=== PATIENT | male | born 1950 | race Caucasian/White ===

== ENCOUNTER 2016-04-21 14:12 | Outpatient (CLI) | payer MEDICARE, OTHER ==
[2016-01-09 21:23] VITALS: BP 125/74
[2016-04-21 14:49] LABS: eGFR (African) 35; eGFR (Non-African) 29
== END 2016-04-21 14:13 ==
LOC: LAB 14:12
PROVIDERS: ATTEND Family Medicine
DX: N18.4 Chronic kidney disease, stage 4 (severe) (principal)
CPT/HCPCS: 36415; 80048

== ENCOUNTER 2016-08-12 14:24 | Outpatient (CLI) | payer MEDICARE, OTHER ==
[2016-01-09 21:23] VITALS: BP 125/74
== END 2016-08-12 14:25 ==
LOC: NEPHRO 14:24
PROVIDERS: ATTEND Internal Medicine Nephrology
DX: N05.9 Unspecified nephritic syndrome with unspecified morphologic changes (principal)
CPT/HCPCS: G0463

== ENCOUNTER 2017-02-17 13:59 | Outpatient (CLI) | payer MEDICARE, OTHER ==
[2016-01-09 21:23] VITALS: BP 125/74
== END 2017-02-17 14:00 ==
LOC: NEPHRO 13:59
PROVIDERS: ATTEND Internal Medicine Nephrology
DX: N18.3 Chronic kidney disease, stage 3 (moderate) (principal); N25.89 Other disorders resulting from impaired renal tubular function
CPT/HCPCS: G0463

== ENCOUNTER 2018-04-09 12:16 | Observation (INO) | payer MEDICARE, OTHER ==
[2018-04-09] MEDS ORDERED: NORMAL SALINE 1,000 ML IV.SOLN IV ONE (12:25)
[2018-04-09 13:11] LABS: MEAN CORPUSCULAR HEMOGLOBIN 29.6 pg (28.0-34.0)
[2018-04-09 13:12] LABS: BASOPHILS % 0.5 (0.0-1.5); EOSINOPHILS % 1.7 % (0.0-6.8); MONOCYTES % 8.4 % (0.0-11.0); NEUTROPHILS # 11.3 # k/uL (1.4-7.7)
[2018-04-09 13:31] LABS: eGFR (Non-African) 34
[2018-04-09] MEDS: ONDANSETRON HCL/PF 4 MG/ 2ML VIAL IVP PRN ×3 (13:40→23:26)
--- NOTE | 2018-04-09 14:05 | History and Physical Report ---
History of Present Illnes - History of Present Illness Reason for Visit: Dehydration- Nausea & Vomiting History of Present Illness: Patient is a 67-year-old white male that presents to the clinic today with nausea and vomiting. Patient states that symptoms started 5 days ago and have not improved. He has tried taking sips of water and he cant hold it down. He feels that he is getting very weak and he lives alone. He is not sure if he has food poisoning from some rene that he ate or if it is just a "bug" he picked up. He feels extremely weak and short of breath with exertion. He denies any chest pain or syncopal episodes- states he occasionally feels dizzy when he moves to quickly or stands up. He has not had any food for several days. Will send patient next door to the hospital and will admit observation for IV hydration and IV zofran for nausea and vomiting. 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 denies: Rheumatoid arthritis Infectious Disease: denies: HIV ENT: denies: Sinusitis Renal/: Chronic renal failure Endocrine: denies: Diabetes, Hypothyroidism Dermatology: denies: Cellulitis - Past Surgical History Past Surgical History: Hernia Repair, Tonsillectomy - Past Social History Smoke: No Alcohol: None Drugs: None Lives: Alone Domestic Violence: Negative - Health Maintenance Health Maintenance: Cholesterol, Influenza Vaccine, Pneumococcal Vaccine Influenza Vaccine: Current for this Influenza Season Pneumonia Vaccine: Yes Resuscitation Status: Resusciation Status Resuscitation Status Full Code - Unable to Obtain History Unable to Obtain: No Review of Systems - Review of Systems Constitutional: negative: Fever, Chills Eyes: negative: pain ENT: negative: Ear Pain, Nose Pain, Throat Pain Respiratory: SOB with Excertion Cardiovascular: Light Headedness (with position change). negative: Chest Pain, Edema Gastrointestinal: Nausea, Vomiting, Abdominal Pain Genitourinary: negative: Dysuria Musculoskeletal: negative: Back Pain Skin: negative: Rash Neurological: Weakness (from nausea and vomiting) - Medications/Allergies Allergies/Adverse Reactions: Allergies Allergy/AdvReac Type Severity Reaction Status Date / Time No Known Drug Allergies Allergy Verified 01/09/16 20:30 Current Inpatient Medications: Current Inpatient Medications Sodium Chloride (Normal Saline) 1,000 mls @ 100 mls/hr IV Q10H CADY Ondansetron HCl (Zofran 4 Mg/2 Ml) 4 mg IVP Q6H PRN PRN Reason: Nausea / Vomiting Last Admin: 04/09/18 13:40 Dose: 4 mg Exam - Exam General: Alert, Oriented to Person, Oriented to Place, Oriented to Time, Cooperative, Mild distress HEENT: Atraumatic, PERRLA, Other (mucous membranes are dry) Neck: Normal Range of Motion. No: Stridor Lungs: Clear to auscultation, Normal air movement, Speaks full Sentences. No: Wheezes, Rales Cardiovascular: Regular rate, Normal S1, Normal S2 Abdomen: Normal bowel sounds, Soft. No: Distended, Rigid Integumentary: Warm, Dry, Pale, Decreased Turgor Extremities: No edema, Normal pulses, No tenderness/swelling Neurological: Normal gait, Normal speech, Strength Equal Bilat, Sensation intact Psych/Mental Status: Mental status NL, Mood NL, Appropriate Affect - Laboratory Results Laboratory Results: Laboratory Results 04/09/18 04/09/18 04/09/18 12:22 12:22 12:40 WBC 14.20 H RBC 4.81 Hgb 14.3 Hct 43.7 MCV 91.0 MCH 29.6 MCHC 32.6 RDW 12.3 Plt Count 363 Neut % (Auto) 79.5 H Lymph % (Auto) 9.9 L [place] % (Auto) 8.4 Eos % (Auto) 1.7 Baso % (Auto) 0.5 Neut # (Auto) 11.3 H Lymph # (Auto) 1.4 [place] # (Auto) 1.2 H Eos # (Auto) 0.2 Baso # (Auto) 0.1 Sodium 139 Potassium 3.6 Chloride 92 L Carbon Dioxide 34 H BUN 33 H Creatinine 2.10 H Est GFR ( Amer) 41 L Est GFR (Non-Af Amer) 34 L Glucose 104 Calcium 9.7 Total Bilirubin 0.7 AST 39 ALT 46 Alkaline Phosphatase 74 Troponin I < 0.03 L Total Protein 7.8 Albumin 4.7 Assessment/Plan - Assessment/Plan (1) Dehydration Status: Acute Current Visit: Yes Assessment: Patient has had n/v- dry mucous membranes- tachycardia- weakness/fatigue Plan: Will admit patient observation- will give a 500cc bolus then 100 cc/hr and repeat labs in the morning (2) Nausea and vomiting Status: Acute Current Visit: Yes Qualifiers: Vomiting type: cyclical vomiting Vomiting Intractability: intractable Q ualified Code(s): G43.A1 - Cyclical vomiting, intractable Assessment: Patient has been unable to tolerate fluids or food- tachycardia- and weakness/fatigue Plan: Will hydrate patient with IVF and IV Zofran for nausea/vomiting VTE Assessment - RISK FACTOR SCORE VTE RISK FACTOR SCORES: AGE OVER 60 YEARS - RISK VTE LOW RISK: SCORE OF 1 OR LESS (RISK PROXIMAL DVT 0.4%) NO PROPHYLAXIS NEEDED
[2018-04-09 16:57] VITALS: BMI 45.7
[2018-04-09] MEDS: 0.9 % SODIUM CHLORIDE 1,000 ML IV SCH (17:29)
[2018-04-10] MEDS ORDERED: PROMETHAZINE HCL 25 MG in 0.9 % SODIUM CHLORIDE 50 ML IV PRN (02:34)
[2018-04-10] MEDS ORDERED: PANTOPRAZOLE SODIUM 40 MG TABLET.DR PO ONE (02:36)
[2018-04-10] MEDS ORDERED: PANTOPRAZOLE SODIUM 40 MG TABLET.DR ONE (02:39)
[2018-04-10] MEDS ORDERED: 0.9 % SODIUM CHLORIDE 50 ML IV ONE (02:39)
[2018-04-10] MEDS ORDERED: PROMETHAZINE HCL 25 MG/ML VIAL ONE (02:39)
[2018-04-10] MEDS: 0.9 % SODIUM CHLORIDE 1,000 ML IV SCH (02:46)
--- NOTE | 2018-04-10 03:08 | Diagnostic Imaging Report ---
HEATHER FERRARO [facility] [address] [facility] 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 Physician: HEATHER FERRARO Examination: Obstruction series History: VOMITING X4 DAYS, WEAKNESS (Hx) Findings: 4 views obtained of the chest and abdomen. No abnormal dilation of the large or small bowel. Air and stool throughout the large bowel. No suspicious calcification projecting over the renal fossa or the lower pelvic region. Pelvic phleboliths. Osseous structures are appropriate for age. The single view of the chest without focal infiltrative process. No blunting of the costophrenic margins. Impression: Moderate large bowel stool. No obstruction. No focal consolidation/effusion. No suspicious calcifications by plain film sensitivity. Electronically signed on Apr 09, 2018 3:13:04 PM FARMWORK[employer]GET[employer] by: Shadi OCHOA
[2018-04-10 07:55] VITALS: BP 134/71
[2018-04-10] MEDS ORDERED: POTASSIUM CHLORIDE 20 MEQ TABLET.ER PO ONE (09:41)
[2018-04-10] MEDS ORDERED: POTASSIUM CHLORIDE 20 MEQ TABLET.ER ONE (10:26)
--- NOTE | 2018-04-12 07:49 | Discharge Summary ---
Discharge Summary - Discharge Sumary History of Present Illness: Patient is a 67-year-old white male that presents to the clinic today with nausea and vomiting. Patient states that symptoms started 5 days ago and have not improved. He has tried taking sips of water and he cant hold it down. He feels that he is getting very weak and he lives alone. He is not sure if he has food poisoning from some rene that he ate or if it is just a "bug" he picked up. He feels extremely weak and short of breath with exertion. He denies any chest pain or syncopal episodes- states he occasionally feels dizzy when he moves to quickly or stands up. He has not had any food for several days. Will send patient next door to the hospital and will admit observation for IV hydration and IV zofran for nausea and vomiting Condition at Discharge: Stable Home Medications: Ambulatory Orders Medication Instructions Recorded Acetaminophen [Tylenol] 650 mg PO QID u2 06/16/14 Docusate Sodium [Colace] 100 mg PO BID av 06/16/14 Multivitamin [Daily Multiple 1 each PO DAILY u2 06/16/14 Vitamin] Ondansetron HCl Rapdis [Zofran Odt] 4 mg PO Q8 PRN #10 tab 04/10/18 Consultations this Visit: None Procedures this Visit: None Allergies/Adverse Reactions: Allergies Allergy/AdvReac Type Severity Reaction Status Date / Time No Known Drug Allergies Allergy Verified 01/09/16 20:30 Discharge Summary: Patient was admitted observation and his dehydration treated with IVF and IV Zofran and Phenergan. He was able to tolerate a regular diet before discharge a nd was feeling much better. He states that his energy level has greatly improved. Discussed abdominal xray and diagnosis of constipation with no obstruction noted. Explained this could be part of the reason for his nausea and vomiting. Patient will start Mag Citrate (1/2 bottle when he gets home- if no results in 1-2 hours he will drink the other half)- he is to start Miralax daily and increase fiber in his diet. He will follow up with PCP next week. Hospital Course: Patient received IVFs, IV Zofran & Phenergan. Patient received 40 meq of Potassium PO for Potassium of 3.1 and he will continue his home medication - Final Diagnosis (1) Dehydration Problems: Patient received IVF- he was able to eat and drink on discharge Right or Left: Right (2) Nausea and vomiting Problems: Nausea and vomiting controlled on discharge- Script for Zofran sent in to [facility] pharmacy Right or Left: Right (3) Constipation Problems: Patient will start Miralax daily and increase fiber in diet. He is to start Mag Citrate (per instructions) Right or Left: Right
== END 2018-04-10 10:30 | disposition home or self-care (01) ==
LOC: SOUTH 12:16
PROVIDERS: ADMIT Nurse Practitioner Family; ATTEND Nurse Practitioner Family
DX: E86.0 Dehydration (principal); R11.2 Nausea with vomiting, unspecified; K59.09 Other constipation
CPT/HCPCS: 36415; 74022; 80048; 80053; 84484; 85025; 96360; 96361; 96375; 96376; 99217; 99219; A9270; G0378; G0379; J2405; J2550; J7030; S1016

== ENCOUNTER 2018-04-12 12:45 | Emergency (ER) | payer MEDICARE, OTHER ==
--- NOTE | 2018-04-12 12:57 | ED Physician Documentation ---
General Adult - HISTORIAN Historian: patient - HPI Stated Complaint: bowel movement concerns Chief Complaint: General Adult Onset: other (today) Timing: better Severity: mild Further Comments: yes (He states that he was hospitalized this last week for deyhdration and constipation. He states the last two bowel movements have been black in color. When discussing more of the type of bowel movement he states the stools are normal in form and he thinks it was "dark like black in color but hard to see at the bottom of the toliet" He denies any abdominal pain no fever no other complaints. he reports he is eating well.) Last known Well Code/Unknown Code: Unknown - ROS CONST: no problems GI/: denies: abdominal pain, vomiting, nausea, diarrhea MS/SKIN/LYMPH: denies: rash - PAST HX Past History: none Allergies/Adverse Reactions: Allergies Allergy/AdvReac Type Severity Reaction Status Date / Time No Known Drug Allergies Allergy Verified 04/12/18 13:26 Home Medications: Ambulatory Orders Medication Instructions Recorded Acetaminophen [Tylenol] 650 mg PO QID u2 06/16/14 Docusate Sodium [Colace] 100 mg PO BID av 06/16/14 Multivitamin [Daily Multiple 1 each PO DAILY u2 06/16/14 Vitamin] - SOCIAL HX Smoking History: cigarettes Alcohol Use: none Drug Use: none - FAMILY HX Family History: No - VITAL SIGNS Vital Signs: Vital Signs Temp Pulse Resp BP Pulse Ox 134/71 04/10/18 08:51 - REVIEWED ASSESSMENTS Nursing Assessment Reviewed: Yes Vitals Reviewed: Yes Progress - Progress Progress: 1455: No pain and results discussed with plan - he states he just actually had a bowel movement in the restroom and it was green. He had no issues passing the stool. No other complaints DG ED Results Lab/Radiology - Radiology Radiology Impressions: Examination: Obstruction series History: 67/M ABD SERIES W/ PA CHEST CONSTIPATION AND STOOL CONCERNS (Hx) Findings: 4 views obtained of the abdomen. Few prominence of small bowel with air-fluid levels left upper abdomen. No suspicious calcification projecting over the renal fossa or the lower pelvic region. Pelvic phleboliths. Osseous degener ative changes. Chronic parenchymal changes. No focal consolidative process or blunting of the costophrenic margins. Impression: Few left upper quadrant prominent loops of presumed small bowel with air-fluid levels. Correlate with patient symptoms. Consider obtaining CT Abdomen/pelvis to further evaluate if clinically warranted. Chronic interstitial changes. No acute parenchymal process. No suspicious calcifications by plain film sensitivity. Electronically signed on Apr 12, 2018 2:50:47 PM MECHANICAL SPECIALIST by: Shadi Rocha General Adult Physical Exam - PHYSICAL EXAM GENERAL APPEARANCE: no distress EENT: eye inspection normal, pharynx normal, no signs of dehydration NECK: normal inspection RESPIRATORY: no resp distress, chest non-tender, breath sounds normal CVS: reg rate & rhythm, heart sounds normal ABDOMEN: soft, normal bowel sounds, no distension, non-tender BACK: normal inspection SKIN: warm/dry, normal color EXTREMITIES: non-tender NEURO: oriented X3, CN's nml as tested, motor nml, sensation nml, mood/affect nml Discharge Clincal Impression: Constipation Qualifiers: Constipation type: unspecified constipation type Qualified Code(s): K59.00 - Constipation, unspecified Referrals: Sondra Interiano MD [Primary Care Provider] - 2 Days Comments: 1. continue on meds as prescribed 2. Follow up with PCP for possible further work up 3. Increase fluids 4. Increase fiber 5. Return to ER for any concerns Condition: Stable Disposition: 01 HOME, SELF-CARE Decision to Admit: NO Date of Decison to Admit: 04/12/18 Decision Time: 14:55
[2018-04-12 13:38] LABS: MEAN CORPUSCULAR HEMOGLOBIN 30.2 pg (28.0-34.0)
[2018-04-12 13:39] LABS: BASOPHILS % 0.4 (0.0-1.5); EOSINOPHILS % 2.4 % (0.0-6.8); MONOCYTES % 8.9 % (0.0-11.0); NEUTROPHILS # 6.4 # k/uL (1.4-7.7)
--- NOTE | 2018-04-12 14:51 | Diagnostic Imaging Report ---
LUCIEN LIMA [facility] [address] [facility] [address] [place], [place]. [address] Report Submission Date: Apr 12, 2018 2:50:47 PM SEWER LINE REPAIRER Patient Study Name: ABEL REARDON Date: Apr 12, 2018 2:01:11 PM SEWER [employer] REPAIRER Modality Type: DX Gender: U Description: ABDOMEN : 50 Institution: [facility] Physician: LUCIEN LIMA Examination: Obstruction series History: 67/M ABD SERIES W/ PA CHEST CONSTIPATION AND STOOL CONCERNS (Hx) Findings: 4 views obtained of the abdomen. Few prominence of small bowel with air-fluid levels left upper abdomen. No suspicious calcification projecting over the renal fossa or the lower pelvic region. Pelvic phleboliths. Osseous degenerative changes. Chronic parenchymal changes. No focal consolidative process or blunting of the costophrenic margins. Impression: Few left upper quadrant prominent loops of presumed small bowel with air-fluid levels. Correlate with patient symptoms. Consider obtaining CT Abdomen/pelvis to further evaluate if clinically warranted. Chronic interstitial changes. No acute parenchymal process. No suspicious calcifications by plain film sensitivity. Electronically signed on Apr 12, 2018 2:50:47 PM SEWER LINE REPAIRER by: Shadi OCHOA
[2018-04-12 15:02] VITALS: BP 108/64
== END 2018-04-12 14:59 | disposition home or self-care (01) ==
LOC: ED 12:45
DX: K59.00 Constipation, unspecified (principal)
CPT/HCPCS: 36415; 74022; 80053; 85025; 99282; 99284

== ENCOUNTER 2018-08-17 13:53 | Outpatient (CLI) | payer MEDICARE, OTHER | END 2018-08-17 13:54 | LOC: NEPHRO 13:53 | PROVIDERS: ATTEND Internal Medicine Nephrology | DX: N18.3 Chronic kidney disease, stage 3 (moderate) (principal); N17.9 Acute kidney failure, unspecified; M35.9 Systemic involvement of connective tissue, unspecified; N15.8 Other specified renal tubulo-interstitial diseases | CPT/HCPCS: G0463 ==

== ENCOUNTER 2019-02-12 08:05 | Outpatient (CLI) | payer MEDICARE, OTHER ==
--- NOTE | 2019-02-12 09:00 | Diagnostic Imaging Report ---
PATIENT MR#: [id number] PATIENT PATIENT NAME: ABEL REARDON DATE OF : 1950 REFERRING PHYSICIAN: Matilde Ricardo EXAM DATE: 02/12/2019 ACCESSION NUMBER: [id number] EXAM DESCRIPTION: CHEST 2VIEW Chest, PA and lateral History: Shortness of breath Findings: No infiltrate, effusion or pneumothorax is present. Heart size, mediastinum and pulmonary v ascularity are normal. Impression: No active pulmonary disease. Read by: Dr. Kevin Herndon Transcribed by: Transcribed Date: Electronically signed by: Dr. Kevin Herndon Date signed: 02/12/2019 8:59:53 AM
[2019-02-12 10:06] LABS: BASOPHILS % 0.5 % (0.0-1.5); NEUTROPHILS # 8.2 # k/uL (1.4-7.7)
[2019-02-12 10:44] LABS: eGFR (Non-African) 25
== END 2019-02-12 08:45 ==
LOC: OUT 08:05
PROVIDERS: ATTEND Nurse Practitioner Family
DX: K40.90 Unilateral inguinal hernia, without obstruction or gangrene, not specified as recurrent (principal)
CPT/HCPCS: 71046; 80053; 85025; 93005; 99202; G0463

== ENCOUNTER 2019-02-15 14:05 | Outpatient (CLI) | payer MEDICARE, OTHER | END 2019-02-15 14:35 | LOC: NEPHRO 14:05 | PROVIDERS: ATTEND Internal Medicine Nephrology | DX: N15.8 Other specified renal tubulo-interstitial diseases (principal) | CPT/HCPCS: 99213; G0463 ==

== ENCOUNTER 2019-03-29 13:31 | Outpatient (CLI) | payer MEDICARE, OTHER | END 2019-03-29 14:02 | LOC: NEPHRO 13:31 | PROVIDERS: ATTEND Internal Medicine Nephrology | DX: E26.81 Bartter's syndrome (principal); E87.6 Hypokalemia; N18.3 Chronic kidney disease, stage 3 (moderate) | CPT/HCPCS: 99214; G0463 ==